=== PATIENT | female | born 1985 | race American Indian/Alaskan Native ===

== ENCOUNTER 2021-06-20 02:19 | Outpatient (CLI) | payer BC ==
[2021-06-20 02:39] VITALS: BP 113/58
[2021-06-20] MEDS ORDERED: LACTATED RINGERS 1,000 ML IV ONE (02:48)
[2021-06-20 03:11] LABS: Bilirubin,Urine NEG (Negative); Blood,Urine SM (Negative); Color,Urine Colorless (Yellow); Protein,Urine <15 mg/dL mg/dL (Negative); Urobilinogen,Urine < 2.0 mg/dL (<2.0); WBC,Urine < 1.0 /HPF (0.0-6.0)
[2021-06-20] MEDS ORDERED: TERBUTALINE 1 MG/1 ML INJ SUB-Q PRN (03:26)
[2021-06-20] MEDS ORDERED: TERBUTALINE 1 MG/1 ML INJ ONE (03:31)
== END 2021-06-20 04:30 | disposition home or self-care (01) ==
LOC: TRG 02:19 → APU 02:29 → TRG 04:30
PROVIDERS: ATTEND Obstetrics & Gynecology
DX: O26.893 Other specified pregnancy related conditions, third trimester (principal); R10.9 Unspecified abdominal pain; Z3A.32 32 weeks gestation of pregnancy
CPT/HCPCS: 59025; 81001; 96360; 96372; J3105; J7120